=== PATIENT | male | born 1995 | race Caucasian/White ===

== ENCOUNTER 2017-08-10 01:37 | Emergency (ER) | payer OTHER ==
[~2017-08-10] VITALS: Ht 193 cm; Wt 94.4 kg
[2017-08-10 01:48] VITALS: TEMP 36.4; Ht 193 cm; Wt 94.4 kg
[2017-08-10] MEDS ORDERED: LORAZEPAM 1 MG TAB SL STA (01:57)
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
[2017-08-10 02:10] LABS: BASO % 0.3 %; BASO ABS # 0.02 K/uL (0-0.2); EOS % 2.5 %; EOS ABS # 0.19 K/uL (0-0.5); HEMATOCRIT 40.3 % (42-52); HEMOGLOBIN 15.2 g/dL (14.0-18.0); IG# 0.02 K/uL (0.00-0.02); LYMPH % 30.1 %; LYMPH ABS # 2.29 K/uL (1.2-3.4); MEAN CELL VOLUME 77.1 fL (80-100); MEAN CORPUSCULAR HEMOGLOBIN 29.1 pg (25-34); MEAN CORPUSCULAR HGB CONC 37.7 g/dl (32-36); MEAN PLATELET VOLUME 9.7 fL (7.4-10.4); MONO % 8.4 %; MONO ABS # 0.64 K/uL (0.11-0.59); NEUT % 58.4 %; NEUT ABS # 4.45 K/uL (1.4-6.5); PLATELET COUNT 160 K/uL (130-400); RED CELL DISTRIBUTION WIDTH CV 12.8 % (11.5-14.5); RED CELL DISTRIBUTION WIDTH SD 35.8 fL (36.4-46.3); WHITE BLOOD COUNT 7.61 K/uL (4.8-10.8)
[2017-08-10 02:31] LABS: ALBUMIN 4.3 gm/dl (3.4-5.0); CALCIUM 8.7 mg/dl (8.5-10.1); CREATININE 1.11 mg/dl (0.60-1.40); POTASSIUM 3.6 mmol/L (3.5-5.1)
[2017-08-10 02:41] LABS: TOTAL PROTEIN 7.1 gm/dl (6.4-8.2)
[2017-08-10 09:40] VITALS: BP 125/80; PULSE 78; O2SAT 99
== END 2017-08-10 09:35 | disposition home or self-care (01) ==
LOC: C.EDB 01:39 → C.EDA 09:35
DX: F32.9 Major depressive disorder, single episode, unspecified (principal); F41.9 Anxiety disorder, unspecified